=== PATIENT | female | born 1990 | race Two or more races ===

== ENCOUNTER 2018-10-02 22:47 | Emergency (ER) | payer MEDICAID ==
[~2018-10-02] VITALS: Ht 170.2 cm; Wt 95.3 kg
--- NOTE | 2018-10-02 22:50 | NUR ---
ED Nurse Note: PT AMBULATED TO ED C/O CHEST PAIN X Tuesday09/26/18. PT STATES SHE WENT TO HER PRIMARY ON TUESDAY AND "THEY DIDNT FIND ANYTHING FEELS LIKE PAIN IS GETTING MORE CONSTANT" DENIES HEADCHES, EYE PAIN, ARM PAIN
[2018-10-02 23:07] VITALS: BP 122/76
[2018-10-02] MEDS ORDERED: Mylanta II UD 30ml ORAL ONE (23:15)
[2018-10-02] MEDS ORDERED: Lidocaine 2% Visc 15ml soln ORAL ONE (23:15)
[2018-10-02 23:22] LABS: BASOPHILS % (AUTO) 0.4 % (0.0-2.0); EOSINOPHILS % (AUTO) 0.7 % (0.0-3.0); HEMOGLOBIN 12.9 G/DL (12.0-16.0); LYMPHOCYTES % (AUTO) 24.4 % (20.0-45.0); MEAN CORPUSCULAR VOLUME 83 FL (80-99); MONOCYTES % (AUTO) 7.9 % (1.0-10.0); NEUTROPHILS % (AUTO) 66.6 % (45.0-75.0); PLATELET COUNT 228 K/UL (150-450); RED BLOOD COUNT 4.58 M/UL (4.20-5.40); RED CELL DISTRIBUTION WIDTH 13.2 % (11.6-14.8); WHITE BLOOD COUNT 10.6 K/UL (4.8-10.8)
[2018-10-02 23:34] LABS: ANION GAP 9 mmol/L (5-15); BLOOD UREA NITROGEN 12 mg/dL (7-18); CALCIUM 8.9 MG/DL (8.5-10.1); CARBON DIOXIDE 27 MMOL/L (21-32); CHLORIDE 102 MMOL/L (98-107); CREATININE 0.8 MG/DL (0.55-1.30); POTASSIUM 3.8 MMOL/L (3.5-5.1); SODIUM 138 MMOL/L (136-145)
[2018-10-02 23:39] LABS: ALANINE AMINOTRANSFERASE 21 U/L (12-78); ALBUMIN 3.9 G/DL (3.4-5.0); ALBUMIN/GLOBULIN RATIO 0.9 (1.0-2.7); ALKALINE PHOSPHATASE 100 U/L (46-116); ASPARTATE AMINO TRANSFERASE 19 U/L (15-37); BILIRUBIN,TOTAL 0.3 MG/DL (0.2-1.0)
[2018-10-03] MEDS ORDERED: OMEPRAZOLE40 M1 ORAL (00:46)
--- NOTE | 2018-10-03 00:47 | Emergency Room Report ---
History of Present Illness General Chief Complaint: Chest Pain Source: Patient Present Illness HPI Is a 27 year-old female with no past medical history. She presents with complaint of chest pain. Onset for about 2 weeks but worse in the last few days. Worse when she lay flat. No nausea no vomiting. Pain is achy and dull in nature. Denies any fever chills. Denies any radicular pain. Denies any vaginal requirement pain. No diaphoresis. Allergies: Coded Allergies: No Known Allergies (Unverified , 10/02/18) Patient History Past Medical History: see triage record, old chart reviewed Past Surgical History: none Pertinent Family History: none Social History: Denies: smoking Last Menstrual Period: 09/18/18 Now: No Immunizations: other Reviewed Nursing Documentation: PMH: Agreed; PSxH: Agreed Nursing Documentation-PMH Past Medical History: No Stated History Review of Systems Eye: Denies: eye pain, blurred vision ENT: Denies: ear pain, nose congestion, throat swelling Respiratory: Denies: cough, shortness of breath Cardiovascular: Reports: chest pain; Denies: palpitations Gastrointestinal: Denies: abdominal pain, diarrhea, nausea, vomiting Musculoskeletal: Denies: back pain, joint pain Skin: Denies: rash Neurological: Denies: headache, numbness Endocrine: Denies: increased thirst, increased urine Hematologic/Lymphatic: Denies: easy bruising All Other Systems: negative except mentioned in HPI Physical Exam Vital Signs Date Time Temp Pulse Resp B/P (MAP) Pulse Ox O2 Delivery O2 Flow Rate FiO2 10/02/18 22:49 98.1 79 16 122/76 (91) 78 Room Air Vitals normal Sp02 EP Interpretation: reviewed, normal General Appearance: well appearing, no apparent distress, alert Head: normocephalic, atraumatic Eyes: bilateral eye PERRL, bilateral eye EOMI ENT: hearing grossly normal, normal pharynx Neck: full range of motion, supple, no meningismus Respiratory: chest non-tender, lungs clear, normal breath sounds Cardiovascular #1: regular rate, rhythm, no murmur Gastrointestinal: normal bowel sounds, non tender, no mass, no organomegaly, no bruit, non-distended Musculoskeletal: back normal, gait/station normal, normal range of motion Psychiatric: mood/affect normal Medical Decision Making Diagnostic Impression: Primary Impression: Chest pain Qualified Codes: R07.9 - Chest pain, unspecified ER Course Patient presents with atypical chest pain. Most likely GI in nature. Better now. No evidence of ACS, PE, dissection to name a few. Will discharge home. EKG Diagnostic Results Rate: normal ST Segments: no acute changes Rhythm Strip Diag. Results EP Interpretation: yes Rate: 75 Rhythm: NSR, no PVC's, no ectopy Chest X-Ray Diagnostic Results Chest X-Ray Diagnostic Results : Chest X-Ray Ordered: Yes # of Views/Limited/Complete: 1 View Indication: Chest Pain EP Interpretation: Yes Interpretation: no consolidation, no effusion, no pneumothorax, no acute cardiopulmonary disease Impression: No acute disease Electronically Signed by: Gera Marinelli MD Last Vital Signs Date Time Temp Pulse Resp B/P (MAP) Pulse Ox O2 Delivery O2 Flow Rate FiO2 10/02/18 23:07 79 16 Room Air 10/02/18 23:07 98.1 122/76 78 Status: improved Disposition: HOME, SELF-CARE Condition: Stable Scripts Omeprazole (OMEPRAZOLE) 40 Mg Capsule. 40 MG ORAL DAILY, #30 CAP Prov: Gera Marinelli MD 10/03/18 Referrals: [facility],REFERRING (PCP) Patient Instructions: Nonspecific Chest Pain, Heartburn Additional Instructions: Follow up with your doctor in 7 days. Return if worse. Gera Marinelli MD Oct 03, 2018 00:47
[2018-10-03 01:07] VITALS: BP 120/75
--- NOTE | 2018-10-03 01:07 | NUR ---
ED Nurse Note: PT CLEARED TO BE D/C PER ERMD, PT DISCHARGE AND AFTERCARE INSTRUCTION PROVIDED W/ PRESCRIPTION, PT EDUCATION DONE VIA DISCUSSION AND HANDOUT, PT ADVISED TO FOLLOW UP WITH PCP OR RETURN TO ED IF CHANGES IN CONDITION, VSS, AMBULATORY W/ STEADY GAIT, LEFT W/ ALL BELONGINGS, IV D/C AND ID BAND REMOVED.
--- NOTE | 2018-10-03 11:01 | Diagnostic Imaging Report ---
Indication: Chest pain Comparison: None A single view chest radiograph was obtained. Findings: Cardiomediastinal appearance is within normal limits for age. The lungs are clear. Pulmonary vascularity is appropriate. The diaphragmatic contour is smooth and costophrenic angles are sharp. No pleural effusions are identified. The bones are unremarkable. Impression: No acute findings
== END 2018-10-03 01:07 | disposition home or self-care (01) ==
LOC: EMR 23:30
DX: R07.9 Chest pain, unspecified (principal)
CPT/HCPCS: 36415; 71045; 80053; 84484; 85025; 99284